=== PATIENT | female | born 1965 | race Caucasian/White ===

== ENCOUNTER → 2022-11-15 11:03 | Outpatient (CLI) | payer OTHER, SELFPAY ==
--- NOTE | 2022-11-15 11:08 | DI.MRI.S_ITS ---
PROCEDURE: MR CERVICAL SPINE WO CON INDICATIONS: Radiculopathy, cervical region TECHNIQUE: Noncontrast sagittal T1 spin echo and T2 fast spin echo, sagittal STIR, foraminal oblique sagittal T2 fast spin echo, and axial gradient echo or T2 fast spin echo through the cervical spine. COMPARISON: None. FINDINGS: Image quality: Excellent. Alignment and Curvature: There is normal bony alignment. Bone Marrow: Marrow demonstrates normal overall signal. Postsurgical changes from C5 through C7 ACDF. The Spinal Cord: Visualized spinal cord has normal size and signal. No cerebellar tonsillar herniation. Paraspinous Soft Tissues: No paravertebral masses. Prevertebral soft tissues are normal in thickness. C2-C3: Normal appearance. C3-C4: Disc desiccation and small posterior disc osteophyte complex. No significant central canal stenosis. Facet and uncovertebral arthropathy resulting in mild bilateral neural foraminal stenosis. C4-C5: Disc desiccation and small posterior disc bulge. Mild central canal stenosis. Facet uncovertebral arthropathy. There is no significant neural foraminal stenosis. C5-C6: No central canal stenosis. Facet and uncovertebral arthropathy resulting in mild right neural foraminal stenosis. No left neural foraminal stenosis. C6-C7: No central canal stenosis. Facet and uncovertebral arthropathy without significant neural foraminal narrowing. C7-T1: Normal appearance. IMPRESSION: Degenerative changes of the cervical spine status post C5 through C7 ACDF. There is mild central canal stenosis C4-C5. Mild neural foraminal stenosis bilaterally at C3-C4 and on the right at C5-C6. Dictated by: Mick Addison M.D. on 11/16/2022 at 9:03 Approved by: Mick Addison M.D. on 11/16/2022 at 9:10
== END ==
PROVIDERS: PCP Student in an Organized Health Care Education/Training Program; Referring Provider Physical Medicine & Rehabilitation Pain Medicine; Visit Provider Physical Medicine & Rehabilitation Pain Medicine
DX: Z98.1 Arthrodesis status; M47.22 Other spondylosis with radiculopathy, cervical region; M48.02 Spinal stenosis, cervical region
CPT/HCPCS: 72141

== ENCOUNTER 2023-08-16 07:12 | Day surgery (SDC) | payer OTHER, SELFPAY ==
[2023-08-16 07:42] VITALS: BMI 29.2
[2023-08-16] MEDS: LACTATED RINGERS 1,000 ML 84 ML IV (07:54)
--- NOTE | 2023-08-16 07:59 | PM.HP.1 ---
History of Present Illness History of Present Illness Date Patient Seen: 08/16/23 Time Patient Seen: 07:59 Chief complaint: SDC Narrative: 58-year-old female who has a personal history of colon polyps. Last exam was in [place]. She is here for surveillance. [facility] Social History household members: spouse Smoking Status: Never smoker alcohol intake: never Meds Home Medications and Allergies Home Medications Medication Instructions Recorded Confirmed Type aripiprazole 2 mg tablet 2 mg PO DAILY 08/16/23 08/16/23 History buspirone 5 mg tablet 5 mg PO 3XD 08/16/23 08/16/23 History fluvoxamine 100 mg tablet 150 mg PO BID 08/16/23 08/16/23 History topiramate 50 mg tablet 50 mg PO BID 08/16/23 08/16/23 History Allergies Allergy/AdvReac Type Severity Reaction Status Date / Time morphine Allergy Verified 08/16/23 07:38 venlafaxine [From Effexor] AdvReac Verified 08/16/23 07:38 Review of Systems Review of Systems ROS: Yes All systems reviewed with the patient and are negative except as otherwise documented Exam Const General: cooperative HENMT Head: normal to inspection Eyes General: appearance normal, both eyes and all related structures Neck Neck: normal visual inspection Chest Chest: normal inspection of the chest Resp Effort & Inspection: normal respiratory effort Cardio Rate: regular rate GI Inspection: normal to inspection Skin General: no rashes or lesions noted Neuro General: patient alert and patient awake Extrem General: normal to inspection and no pedal edema Psych Appearance: grossly normal Assessment & Plan Assessment & Plan narrative: 58-year-old female with a history of colon polyps. No family history of colon cancer. Surveillance colonoscopy is pursued today.
--- NOTE | 2023-08-16 08:00 | PM.PREOP ---
Pre-operative Note Interval Note History & Physical reviewed/Exam performed by Physician: Yes Changes to H&P: No ASA Class (for procedural sedation): II
--- NOTE | 2023-08-16 09:01 | PM.OP.COLON ---
Operative Date/Time/Diagnoses Date of procedure: 08/16/23 Time of procedure: 09:02 Pre-op diagnosis: History of colon polyps Post-op diagnosis: same Procedure & Clinicians Study performed: Colonoscopy Same procedure as scheduled: Yes Indications: History of colon polyps Surgeon: Justice Shirley Procedure Notes SCOAP/Timeout: Done Procedure in detail: After the risks and benefits were explained, written and verbal informed consent was obtained. The patient was brought into the procedure room and placed into the left lateral decubitus position. Please see anesthesia note for sedation details. Digital rectal examination was accomplished. The scope was introduced into the patient and advanced under direct visualization to the cecum as identified by the appendiceal orifice and ileocecal valve. The scope was slowly withdrawn to carefully examine the mucosa for any defects or lesions. Comprehensive imaging was accomplished throughout the rectum including the dentate line. The colon was decompressed, the scope was then removed from the patient who tolerated the procedure well. Pediatric colonoscope Bowel prep adequate Scope withdrawal time: 7 minutes Sedation minutes: 14 Specimen(s): none sent Complications: none Impression: The patient had grade 2-3 nonbleeding nonthrombosed hemorrhoids. The colonic mucosa was normal throughout. No significant polyps mass lesions or inflammatory changes. Endoscopic diagnosis 1. Grade 2 to 3 internal hemorrhoids 2. Otherwise visually normal exam Post-procedure Plan for aftercare: Repeat colonoscopy 7-10 years. Disposition: PACU
[2023-08-16 09:05] VITALS: BP 99/63; PULSE 58; RESP 16; TEMP 36.5; O2SAT 100
[2023-08-16 09:09] VITALS: BP 106/61; PULSE 60; RESP 18; O2SAT 99
[2023-08-16 09:15] VITALS: BP 89/57; PULSE 54; RESP 14; O2SAT 97
[2023-08-16 09:20] VITALS: BP 102/58; PULSE 53; RESP 16; TEMP 36.7; O2SAT 97
== END 2023-08-16 09:33 | disposition home or self-care (01) ==
PROVIDERS: PCP Student in an Organized Health Care Education/Training Program; Referring Provider Internal Medicine Gastroenterology; Visit Provider Internal Medicine Gastroenterology
PROC: 0DJD8ZZ Inspection of Lower Intestinal Tract, Via Natural or Artificial Opening Endoscopic (ICD-10-PCS; CPT 45378; principal; 2023-08-16 08:30)
DX: Z12.11 Encounter for screening for malignant neoplasm of colon (principal); Z86.010 Personal history of colon polyps; K64.1 Second degree hemorrhoids
CPT/HCPCS: 45378; J2704